=== PATIENT | male | born 1950 | race Caucasian/White ===

== ENCOUNTER → 2018-08-27 | Outpatient (CLI) | payer OTHER, MEDICARE | LOC: FIMAGING 11:22 | PROVIDERS: ATTEND Orthopaedic Surgery | DX: Z01.818 Encounter for other preprocedural examination (principal); M17.11 Unilateral primary osteoarthritis, right knee ==

== ENCOUNTER 2018-09-11 05:56 | Observation (INO) | payer OTHER, MEDICARE | END 2018-09-12 11:02 | disposition home or self-care (01) | LOC: F3N 05:56 ==